=== PATIENT | male | born 1955 | race African-American/Black ===

== ENCOUNTER 2017-04-21 19:35 | Emergency (ER) | payer SELFPAY ==
[~2017-04-21] VITALS: Ht 170.2 cm; Wt 59.0 kg
[2017-04-22] MEDS ORDERED: KETOROLAC 60MG/2ML VIAL IM ONE (00:15)
[2017-04-22 01:14] VITALS: BP 116/72
== END 2017-04-22 01:22 | disposition home or self-care (01) ==
LOC: ER 19:55
DX: S39.012A Strain of muscle, fascia and tendon of lower back, initial encounter (principal); I10 Essential (primary) hypertension; E78.00 Pure hypercholesterolemia, unspecified; F17.210 Nicotine dependence, cigarettes, uncomplicated; V78.1XXA Passenger on bus injured in noncollision transport accident in nontraffic accident, initial encounter; Y93.89 Activity, other specified; Y92.89 Other specified places as the place of occurrence of the external cause
CPT/HCPCS: 96372; 99283; J1885